=== PATIENT | female | born 1990 | race Caucasian/White ===

== ENCOUNTER 2022-02-26 23:40 | Observation (INO) | payer OTHER ==
[~2022-02-26] VITALS: Ht 154.9 cm; Wt 54.0 kg
[2022-02-27 01:01] VITALS: BP 135/79
[2022-02-27] MEDS ORDERED: OSC500 PO (06:36)
[2022-02-27] MEDS ORDERED: FERR325E14 PO (06:36)
[2022-02-27] MEDS ORDERED: PRETAB PO (06:36)
== END 2022-02-27 00:45 | disposition home or self-care (01) ==
LOC: MLD 23:40
PROVIDERS: ADMIT Obstetrics & Gynecology; ATTEND Obstetrics & Gynecology
DX: O62.9 Abnormality of forces of labor, unspecified (principal); Z3A.39 39 weeks gestation of pregnancy
CPT/HCPCS: 59025; 81000; G0378

== ENCOUNTER 2022-02-27 06:06 | Inpatient (IN) | payer OTHER ==
[~2022-02-27] VITALS: Ht 154.9 cm; Wt 54.0 kg
[2022-02-27] MEDS ORDERED: OSC500 PO (06:36)
[2022-02-27] MEDS ORDERED: FERR325E14 PO (06:36)
[2022-02-27] MEDS ORDERED: PRETAB PO (06:36)
[2022-02-27 06:37] VITALS: BP 128/79
[2022-02-27] MEDS: LACTATED RINGERS 500 ML IV SCH ×6 (07:37→20:37)
[2022-02-27] MEDS ORDERED: ROPIVACAINE 0.2%/NS PREMIX 200 ML EPI ONE (07:58)
[2022-02-27] MEDS ORDERED: fentaNYL citrate 0.05 MG/ML VIAL ONE (07:59)
[2022-02-27 08:34] LABS: APPEARANCE,URINE CLEAR (CLEAR); BILIRUBIN,URINE NEGATIVE (NEGATIVE); BLOOD, URINE TRACE-I (NEGATIVE); COLOR,URINE YELLOW (YELLOW); LEUKOCYTE ESTERASE ,URINE NEGATIVE (NEGATIVE); NITRITE, URINE NEGATIVE (NEGATIVE); UGLUCOSE NEGATIVE (NEGATIVE)
[2022-02-27 08:40] LABS: ALBUMIN 2.7 g/dL (3.4-5.0); ANION GAP 17.1 (8-16); CREATININE 0.7 mg/dL (0.6-1.3); POTASSIUM 4.1 mmol/L (3.5-5.1); TOTAL BILIRUBIN 0.4 mg/dL (0.0-1.0)
[2022-02-27 08:47] LABS: BASOPHILS % (AUTO) 0.3 % (0.0-2.0); EOSINOPHILS % (AUTO) 0.2 % (0.0-4.0); HEMOGLOBIN 11.9 g/dL (12.0-16.0); LYMPHOCYTES % (AUTO) 23.2 % (20.5-51.1); MEAN CORPUSCULAR HEMOGLOBIN 29 pg (27-31); MEAN CORPUSCULAR HGB CONC 34 g/dL (33-37); MEAN CORPUSCULAR VOLUME 84.7 fL (80-94); MONOCYTES # (AUTO) 0.6 K/uL (0.8-1.0); MONOCYTES % (AUTO) 7.1 % (1.7-9.3); NEUTROPHILS # (AUTO) 5.9 K/uL (1.8-7.7); NEUTROPHILS % (AUTO) 69.2 % (42.2-75.2); PLATELET COUNT (AUTO) 99 K/uL (140-450); RED BLOOD CELL COUNT(AUTO) 4.14 MIL/uL (4.20-5.40); RED CELL DISTRIBUTION WIDTH 13.4 % (11.6-13.7); WHITE BLOOD COUNT (AUTO) 8.6 K/uL (4.8-10.8)
[2022-02-27 09:05] LABS: RBC,URINE 0-5 /HPF (0-5); WBC,URINE 0-5 /HPF (0-5)
--- NOTE | 2022-02-27 09:05 | NUR ---
PATIENT HAS BEEN SCREENED AND CATEGORIZED LOW NUTRITION RISK. PATIENT WILL BE SEEN WITHIN 7 DAYS OF ADMISSION. 03/05/[address]
[2022-02-27] MEDS ORDERED: LACTATED RINGERS 500 ML IV SCH (09:15)
[2022-02-27 11:01] LABS: BARBITURATE, URINE NEGATIVE ng/ml (NEG <=200); BENZODIAZEPINE, URINE NEGATIVE ng/mL (NEG <=200); CANNABINOID, URINE NEGATIVE ng/mL (NEG <=50); COCAINE, URINE NEGATIVE ng/mL (NEG <=300); OPIATE, URINE NEGATIVE ng/mL (NEG <=2000); PHENCYCLIDINE SCREEN,URINE NEGATIVE ng/mL (NEG <=25)
[2022-02-27] MEDS ORDERED: PENICILLIN G BENZATHINE L-A 0.6 MU/ML SYR IM SCH (15:30)
[2022-02-27] MEDS ORDERED: PENICILLIN G BENZATHINE L-A 1.2 MU/2 ML SYR IM SCH (15:35)
[2022-02-27] MEDS ORDERED: MAG SULF 2000 MG/WATER PREMIX 100 ML IV ONE (16:05)
[2022-02-27 16:12] LABS: URINE TOTAL PROTEIN 11.8 mg/dL (0-12)
[2022-02-27 16:50] LABS: PROTHROMBIN TIME 9.5 secs (10.8-13.4)
[2022-02-27] MEDS ORDERED: MAG SULF 2000 MG/WATER PREMIX 100 ML IV SCH (16:51)
[2022-02-27] MEDS: MAG SULF 20 GM/H2O PREMIX DRIP 500 ML IV PRN (17:41)
[2022-02-27] MEDS ORDERED: OXYTOCIN 20 UNITS in LACTATED RINGERS 1,000 ML IV SCH (21:25)
[2022-02-27] MEDS ORDERED: OXYTOCIN 20 UNITS/LR PREMIX 1,000 ML IV ONE (21:33)
[2022-02-28] MEDS ORDERED: OXYTOCIN 20 UNITS/LR PREMIX 1,000 ML IV ONE (01:35)
[2022-02-28] MEDS: MAG SULF 20 GM/H2O PREMIX DRIP 500 ML IV PRN ×2 (05:06→14:44)
[2022-02-28] MEDS ORDERED: TEMAZEPAM 15 MG CAP PO PRN (05:15)
[2022-02-28] MEDS ORDERED: BENZOCAINE/MENTHOL 20%-0.5% 60 GM CAN TP PRN (05:15)
[2022-02-28] MEDS ORDERED: MEASLES, MUMPS, AND RUBELLA 1 VIAL SQVAC ONE (05:15)
[2022-02-28] MEDS ORDERED: oxyCODONE/APAP 5/325 MG 1 TAB TAB PO PRN (05:15)
[2022-02-28] MEDS ORDERED: IBUPROFEN 800 MG TAB PO PRN (05:15)
[2022-02-28] MEDS ORDERED: HYDROcodone/APAP 5/325 MG 1 TAB TAB PO PRN (05:15)
[2022-02-28] MEDS ORDERED: SHARK OIL/PHENYLEPHRINE 60 GM TUBE TP PRN (15:00)
[2022-02-28] MEDS ORDERED: DOCUSATE SOD/SENNA 50/8.6 MG 1 TAB PO SCH (21:00)
[2022-02-28] MEDS ORDERED: SENNA 8.6 MG TAB PO SCH (21:00)
[2022-03-01 05:27] LABS: HEMATOCRIT 26.1 % (36-48); HEMOGLOBIN 8.9 g/dL (12.0-16.0)
[2022-03-01 06:08] LABS: HEPATITIS B SURFACE ANTIGEN Negative (Negative)
== END 2022-03-01 16:05 | disposition home or self-care (01) | DRG 560 ==
LOC: MLD 06:06 → OBSVTOIN 07:35 → MFCC 02-28 20:30
PROVIDERS: ADMIT Obstetrics & Gynecology; ATTEND Obstetrics & Gynecology
PROC: 10D07Z6 Extraction of Products of Conception, Vacuum, Via Natural or Artificial Opening (ICD-10-PCS; principal; 2022-02-27)
PROC: 0KQM0ZZ Repair Perineum Muscle, Open Approach (ICD-10-PCS; 2022-02-27)
PROC: 3E0R3BZ Introduction of Anesthetic Agent into Spinal Canal, Percutaneous Approach (ICD-10-PCS; 2022-02-27)
PROC: 00HU33Z Insertion of Infusion Device into Spinal Canal, Percutaneous Approach (ICD-10-PCS; 2022-02-27)
DX: O77.0 Labor and delivery complicated by meconium in amniotic fluid (principal); Z37.0 Single live birth; D62 Acute posthemorrhagic anemia; O98.52 Other viral diseases complicating childbirth; B00.9 Herpesviral infection, unspecified; Z20.822 Contact with and (suspected) exposure to COVID-19; O70.1 Second degree perineal laceration during delivery; O99.02 Anemia complicating childbirth; Z3A.38 38 weeks gestation of pregnancy; Z79.899 Other long term (current) drug therapy
CPT/HCPCS: 36415; 51702; 80053; 80305; 81001; 82570; 83735; 84550; 85018; 85025; 85384; 85610; 85730; 86592; 86762; 86886; 86900; 86901; 87340; J0561; J2590; J2795; J3010; J3475; J7120